=== PATIENT | female | born 1970 | race Caucasian/White ===

== ENCOUNTER 2017-08-16 15:39 | Emergency (ER) | payer BC ==
[~2017-08-16] VITALS: Ht 152.4 cm; Wt 54.4 kg
[~2017-08-16 15:39] MED LIST: FLEXERIL PO; LEXAPRO 10 MG T10 M2; MACROBID 100 M100 MG PO; NOHOMEMEDICATIONS; PHENAZOPYRIDIN200 M2 PO; ZOFRAN ODT4 MG PO
[2017-08-16] MEDS ORDERED: BACTRIM DS TAB1 EACH PO (15:54)
[2017-08-16 16:11] LABS: URINE BILIRUBIN NEGATIVE (Negative); URINE BLOOD NEGATIVE (Negative); URINE CLARITY CLEAR; URINE COLOR YELLOW; URINE GLUCOSE-RANDOM NEGATIVE (Negative); URINE KETONES NEGATIVE (Negative); URINE LEUKOCYTES-REFLEX NEGATIVE (Negative); URINE NITRITE-REFLEX NEGATIVE (Negative); URINE PROTEIN NEGATIVE (Negative); URINE SPECIFIC GRAVITY >= 1.030 (1.005-1.030); URINE UROBILINOGEN 0.2 E.U./dl (0.2-1.0)
[2017-08-16 16:36] LABS: ABSOLUTE LYMPHOCYTES 1.7 thou/uL (0.8-5.3); ABSOLUTE MONOCYTES 0.3 thou/uL (0.0-1.2); ABSOLUTE NEUTROPHILS 3.9 thou/uL (1.6-8.1); BASOPHILS 0.3 %; EOSINOPHILS 0.6 %; HEMATOCRIT 42.9 % (37.0-47.0); HEMOGLOBIN 14.7 gm/dL (12.0-15.0); LYMPHOCYTES 28.1 %; MCH 32.4 pg (26.0-34.0); MCHC 34.2 g/dL (28.0-37.0); MCV 94.7 fL (80.0-100.0); MONOCYTES 5.4 %; MPV 8.2 fl. (7.2-11.1); NUCLEATED RBCS 0 /100WBC; PLATELET COUNT* 225 thou/uL (150-400); POLYS 65.6 %; RBC 4.53 mil/uL (4.20-5.00); RDW-CV 12.2 % (10.5-14.5); WBC 5.9 thou/uL (4.0-11.0)
[2017-08-16 16:44] LABS: CALCIUM 8.8 mg/dL (8.5-10.1); CREATININE 1.2 mg/dL (0.6-1.3); POTASSIUM 4.1 mmol/L (3.5-5.1)
[2017-08-16 16:57] LABS: ALBUMIN 3.8 g/dL (3.4-5.0); TOTAL BILIRUBIN 0.4 mg/dL (<0.1-1.0); TOTAL PROTEIN 7.5 g/dL (6.4-8.2)
[2017-08-16] MEDS ORDERED: ZOFRAN ODT4 MG PO (16:59)
[2017-08-16 17:10] VITALS: BP 111/77
== END 2017-08-16 17:11 | disposition home or self-care (01) ==
LOC: M.ERS 15:39
PROVIDERS: Nurse Practitioner Family
DX: R30.0 Dysuria (principal); R11.0 Nausea; E78.00 Pure hypercholesterolemia, unspecified; I10 Essential (primary) hypertension

== ENCOUNTER 2019-02-13 20:16 | Emergency (ER) | payer BC ==
[~2019-02-13] VITALS: Ht 152.4 cm; Wt 66.5 kg
[~2019-02-13 20:16] MED LIST changes: +BACTRIM DS TAB1 EACH PO
[2019-02-13] MEDS ORDERED: KEFLEX500 M1 PO (21:37)
[2019-02-13 22:03] VITALS: BP 135/88
== END 2019-02-13 22:04 | disposition home or self-care (01) ==
LOC: M.ERS 20:16
DX: S61.011A Laceration without foreign body of right thumb without damage to nail, initial encounter (principal); Z90.49 Acquired absence of other specified parts of digestive tract; E78.00 Pure hypercholesterolemia, unspecified; W23.0XXA Caught, crushed, jammed, or pinched between moving objects, initial encounter; Y93.89 Activity, other specified; Y92.89 Other specified places as the place of occurrence of the external cause; Y99.8 Other external cause status

== ENCOUNTER 2020-11-10 12:03 | Emergency (ER) | payer BC ==
[~2020-11-10] VITALS: Ht 152.4 cm; Wt 61.2 kg
[~2020-11-10 12:03] MED LIST changes: +KEFLEX500 M1 PO
[2020-11-10 13:08] VITALS: BP 141/86
== END 2020-11-10 13:09 | disposition home or self-care (01) ==
LOC: M.ERS 12:03
DX: S01.81XA Laceration without foreign body of other part of head, initial encounter (principal); E78.00 Pure hypercholesterolemia, unspecified; Z90.49 Acquired absence of other specified parts of digestive tract; W22.8XXA Striking against or struck by other objects, initial encounter; Y93.89 Activity, other specified; Y92.89 Other specified places as the place of occurrence of the external cause; Y99.8 Other external cause status

== ENCOUNTER 2020-11-13 16:15 | Emergency (ER) | payer BC ==
[~2020-11-13] VITALS: Ht 152.4 cm; Wt 59.0 kg
[2020-11-13] MEDS ORDERED: DOXYCYCLINE 10100 MG PO (16:40)
[2020-11-13 16:55] VITALS: BP 138/93
== END 2020-11-13 16:55 | disposition home or self-care (01) ==
LOC: M.ERS 16:15
DX: S01.81XA Laceration without foreign body of other part of head, initial encounter (principal); L08.9 Local infection of the skin and subcutaneous tissue, unspecified; E78.00 Pure hypercholesterolemia, unspecified; Z90.49 Acquired absence of other specified parts of digestive tract; X58.XXXA Exposure to other specified factors, initial encounter; Y93.89 Activity, other specified; Y92.89 Other specified places as the place of occurrence of the external cause; Y99.8 Other external cause status

== ENCOUNTER 2020-12-30 11:38 | Emergency (ER) | payer BC ==
[~2020-12-30] VITALS: Ht 165.1 cm; Wt 54.4 kg
[~2020-12-30 11:38] MED LIST changes: +DOXYCYCLINE 10100 MG PO
[2020-12-30 12:10] LABS: URINE BILIRUBIN NEGATIVE (Negative); URINE BLOOD 1+ (Negative); URINE CLARITY CLEAR; URINE COLOR YELLOW; URINE GLUCOSE-RANDOM NEGATIVE (Negative); URINE LEUKOCYTES NEGATIVE (Negative); URINE NITRITE NEGATIVE (Negative); URINE PROTEIN NEGATIVE (Negative); URINE SPECIFIC GRAVITY >= 1.030 (1.005-1.030); URINE UROBILINOGEN 0.2 E.U./dl (0.2-1.0)
[2020-12-30 12:11] LABS: ACETEST (KETONE CONFIRMATORY) Moderate (Negative); URINE KETONES 3+ (Negative)
[2020-12-30 12:19] LABS: BACTERIA 1-9 Few /HPF (None Seen); CASTS None Seen /LPF (None Seen); CRYSTALS None Seen /LPF (None Seen); MUCUS None Seen strn/LPF (None Seen); SQUAMOUS 4-10 Moderate /LPF (0-3); URINE RBC 3-10 Few /HPF (0-2); URINE WBC 0-5 Rare /HPF (0-5)
[2020-12-30] MEDS ORDERED: CEPHALEXIN500 MG PO (12:45)
[2020-12-30 13:15] VITALS: BP 134/70
== END 2020-12-30 13:16 | disposition home or self-care (01) ==
LOC: M.ERS 11:38
PROVIDERS: Emergency Medicine
DX: N39.0 Urinary tract infection, site not specified (principal); Z20.822 Contact with and (suspected) exposure to COVID-19; R53.83 Other fatigue; R53.81 Other malaise; E78.00 Pure hypercholesterolemia, unspecified; Z90.49 Acquired absence of other specified parts of digestive tract